=== PATIENT | female | born 1945 | race African-American/Black ===

== ENCOUNTER 2018-11-25 06:30 | Day surgery (SDC) | payer MEDICARE, OTHER ==
[2018-11-25] MEDS ORDERED: FENTANYL CITRATE 100 MCG/2 ML AMPUL IM ONE (06:31)
[2018-11-25] MEDS ORDERED: MIDAZOLAM HCL 2 MG/2 ML VIAL IM ONE (06:31)
[2018-11-25] MEDS ORDERED: SIMETHICONE 40 MG/0.6 ML, 30ML BOTTLE MC ONE (06:31)
[2018-11-25] MEDS ORDERED: KETOROLAC 0.5% OPHT DROP 3 ML BOTTLE ONE (06:56)
[2018-11-25] MEDS ORDERED: TROPICAMIDE 1% OPHT DROP 3 ML BOTTLE ONE (06:56)
[2018-11-25] MEDS ORDERED: CIPROFLOXACIN 0.3% OPHT DROP 2.5 ML BOTTLE ONE (06:56)
[2018-11-25] MEDS ORDERED: CYCLOPENTOLATE 1% OPHT DROP 2 ML BOTTLE ONE (06:57)
[2018-11-25] MEDS ORDERED: PHENYLEPHRINE 2.5% OPHT DROP 2 ML BOTTLE ONE (06:57)
[2018-11-25] MEDS ORDERED: BALANCED SALT IRRIG SOLN COMB1 500 ML, EPINEPHRINE-PF 1:1000 0.5 MG IO ONE ×2 (07:00)
[2018-11-25] MEDS ORDERED: MOXIFLOXACIN HCL 3 ML OPHT DROPS ONE (07:22)
[2018-11-25] MEDS ORDERED: LIDOCAINE-MPF 2% 5 ML VIAL ONE (07:22)
[2018-11-25] MEDS ORDERED: BALANCED SALT IRRIG SOLN COMB2 15 ML IRRIG.SOLN ONE (07:23)
[2018-11-25] MEDS ORDERED: ACETYLCHOLINE CHLORIDE 1% OPHT 1 EA KIT ONE (07:23)
[2018-11-25] MEDS ORDERED: NEO/POLYMYX B/DEXAME OPHT OINT 3.5 GM TUBE ONE (07:23)
[2018-11-25] MEDS ORDERED: TETRACAINE HCL 0.5% OPHT DROP 2 ML BOTTLE ONE (07:23)
[2018-11-25] MEDS ORDERED: TIMOLOL MALEATE 0.5% OPHT DROP 5 ML BOTTLE ONE (07:23)
[2018-11-25] MEDS ORDERED: HYALURONIDASE,OVINE 200 UNITS/ML VIAL ONE (07:24)
[2018-11-25] MEDS ORDERED: HYALURONATE SODIUM 12.8 MG/0.8 ML DISP.SYRIN ONE ×2 (07:24→07:25)
[2018-11-25] MEDS ORDERED: BUPIVACAINE PF 0.5% 30 ML VIAL ONE (07:24)
[2018-11-25] MEDS ORDERED: MIDAZOLAM HCL 2 MG/2 ML VIAL ONE (09:09)
[2018-11-25] MEDS ORDERED: FENTANYL CITRATE 100 MCG/2 ML AMPUL ONE (09:10)
[2018-11-25] MEDS ORDERED: BALANCED SALT IRRIG SOLN COMB1 500 ML ONE (09:38)
== END 2018-11-25 11:29 ==
LOC: DS 06:30
PROVIDERS: ATTEND Ophthalmology
DX: H25.011 Cortical age-related cataract, right eye (principal); I70.90 Unspecified atherosclerosis; I25.10 Atherosclerotic heart disease of native coronary artery without angina pectoris; I11.0 Hypertensive heart disease with heart failure; I50.9 Heart failure, unspecified; F32.9 Major depressive disorder, single episode, unspecified; F41.9 Anxiety disorder, unspecified; E66.01 Morbid (severe) obesity due to excess calories; Z79.899 Other long term (current) drug therapy; Z87.440 Personal history of urinary (tract) infections; Z87.01 Personal history of pneumonia (recurrent); Z91.013 Allergy to seafood; Z91.041 Radiographic dye allergy status; Z88.8 Allergy status to other drugs, medicaments and biological substances
CPT/HCPCS: 66984; 71045; J0171; J2250 ×2; J3010 ×2; J3471; J3490 ×2; J7120; J7321 ×2; V2632; A4663